=== PATIENT | female | born 1975 | race Caucasian/White ===

== ENCOUNTER → 2017-12-08 | Outpatient (CLI) | payer BC ==
--- NOTE | 2017-12-09 09:25 | CT ---
Examination: CT of the abdomen and pelvis without contrast. Clinical History: Lower abdominal pain, hematuria. Technique: Multiple axial images were obtained from the lung bases down to the pubic symphysis. No or al or intravenous contrast was administered. Dose reduction techniques including automated exposure c ontrol (AEC) and adjustment of mA and kV were utilized. Comparison: None available. Findings: The visualized portion of the lung bases is unremarkable. A tiny 3 mm nonobstructing calculus is seen associated with the lower pole of the left kidney. No acu te urinary tract obstruction is noted. No hydronephrosis or hydroureter is noted. A small 3 mm calcul us is seen in the dependent portion of the bladder to the left of midline. The liver, spleen, pancreas, gallbladder and adrenal glands are normal in appearance. The abdominal aorta is normal in caliber. The bowel gas pattern is non-obstructive. There is no free air. Tiny diverticula are seen associated with the colon. There is no CT evidence for acute diverticulitis . The small bowel is grossly unremarkable. The appendix is not visualized. There is no CT evidence for acute appendicitis. A small 3 mm calculus is seen in the dependent portion of the bladder to the left of midline. The uterus is surgically absent. Bilateral small adnexal masses are noted, measuring 2.9 x 1.9 cm on the left side and 2.7 x 1.7 cm on the right side, likely representing the normal ovaries. If there is clinical concern regarding pelvic pathology, a pelvic ultrasound could be obtained for further evalu ation. No pelvic mass or fluid collection is noted. Mild degenerative changes are noted in the spine. No acute osseous abnormality is noted. Impression: 1. A tiny 3 mm nonobstructing calculus is seen associated with the lower pole of the left kidney. No acute urinary tract obstruction is noted. No hydronephrosis or hydroureter is noted. A small 3 mm sue culus is seen in the dependent portion of the bladder to the left of midline. 2. Mild colonic diverticulosis without CT evidence for acute diverticulitis. 3. The uterus is surgically absent. Bilateral small adnexal masses are noted, measuring 2.9 x 1.9 cm on the left side and 2.7 x 1.7 cm on the right side, likely representing the normal ovaries. If there is clinical concern regarding pelvic pathology, a pelvic ultrasound could be obtained for further ev aluation. Reported By:
== END ==
LOC: RAD 15:37
PROVIDERS: ATTEND Internal Medicine
DX: R31.9 Hematuria, unspecified (principal); N20.0 Calculus of kidney
CPT/HCPCS: 74176